=== PATIENT | male | born 1960 | race Two or more races ===

== ENCOUNTER 2020-05-22 23:15 | Inpatient (IN) | payer OTHER ==
[~2020-05-22] VITALS: Ht 180.3 cm; Wt 103.8 kg
[2020-05-22 23:35] VITALS: BP 138/68
[2020-05-23] MEDS ORDERED: methylPREDNISolone SOD SUCC 125 MG/2 ML VL IV ONE (00:45)
[2020-05-23] MEDS ORDERED: levoFLOXacin 750MG 150 ML IV ONE (00:45)
[2020-05-23 02:27] LABS: Basophils # (auto) 0 10 ^3/uL (0-0.2); Basophils % (auto) 0.1 % (0.0-2.0); Eosinophils # (auto) 0 10 ^3/uL (0-0.8); Hematocrit 39.4 % (41.0-53.0); Hemoglobin 13.5 g/dL (13.5-17.5); Lymphocytes # (auto) 0.2 10 ^3/uL (0.4-5.4); Lymphocytes % (auto) 2.7 % (10.0-50.0); Mean Corpuscular Hemoglobin 28.6 pg (28.0-32.0); Mean Corpuscular Hgb Conc. 34.3 g/dL (32.0-36.0); Mean Corpuscular Volume 83.4 fL (80.0-100.0); Monocytes # (auto) 0.5 10 ^3/uL (0-1.3); Monocytes % (auto) 5.6 % (0.0-12.0); Neutrophils # (auto) 7.7 10 ^3/uL (1.6-8.6); Neutrophils % (auto) 91.6 % (37.0-80.0); Nucleated Red Blood Cells % 0.1 %; Red Blood Cells 4.72 10^6/uL (4.5-5.90); Red Cell Distribution Width 14.3 % (11.8-14.3); White Blood Cell 8.4 10^3/uL (4.4-10.8)
[2020-05-23 02:40] LABS: Albumin 2.7 g/dL (3.4-5.0); Anion Gap 4 (5-15); Blood Urea Nitrogen 24 mg/dL (7-18); Calcium 8.4 mg/dL (8.5-10.1); Carbon Dioxide 26 mmol/L (21-32); Chloride 109 mmol/L (98-107); Glucose 174 mg/dL (74-106); Potassium 3.7 mmol/L (3.5-5.1); Sodium 139 mmol/L (136-145)
[2020-05-23 02:42] LABS: Alanine Aminotransferase 60 U/L (16-61); Aspartate Aminotransferase 37 U/L (15-37); GFR African American 99 mL/min; GFR Non-African American 82 mL/min
[2020-05-23 02:46] LABS: Alkaline Phosphatase 68 U/L (45-117); Bilirubin, Total 0.4 mg/dL (0.2-1.0); Total Protein 6.6 g/dL (6.4-8.2)
[2020-05-23 02:51] VITALS: BP 138/68
[2020-05-23] MEDS ORDERED: LORazepam 2MG/ML-1ML VIAL IV ONE (04:30)
[2020-05-23] MEDS ORDERED: MORPHINE SULFATE INJECTION 2 MG/ML SYRG IV PRN (07:15)
[2020-05-23] MEDS ORDERED: ONDANSETRON HCL 4 MG/2 ML VIAL IV PRN (07:15)
[2020-05-23] MEDS ORDERED: SODIUM CHLORIDE 0.9% 1,000 ML IV SCH (07:15)
[2020-05-23] MEDS ORDERED: DOCUSATE SOD 100 MG CAP PO PRN (07:15)
[2020-05-23] MEDS ORDERED: ALBUTEROL SULF HFA 90MCG INH 200DOSE IN PRN (07:15)
[2020-05-23] MEDS ORDERED: HYDROcodone-ACET 5/325MG TAB PO PRN (07:15)
[2020-05-23] MEDS ORDERED: ACETAMINOPHEN 500 MG TAB PO PRN (07:15)
[2020-05-23] MEDS ORDERED: NITROGLYCERIN 0.4 MG SL TAB SL PRN (07:15)
[2020-05-23 07:20] VITALS: BP 129/67
[2020-05-23 08:44] LABS: Basophils # (auto) 0 10 ^3/uL (0-0.2); Eosinophils # (auto) 0 10 ^3/uL (0-0.8); Hemoglobin 13.9 g/dL (13.5-17.5); Lymphocytes # (auto) 0.4 10 ^3/uL (0.4-5.4); Mean Corpuscular Hemoglobin 28.9 pg (28.0-32.0); Mean Corpuscular Hgb Conc. 34.7 g/dL (32.0-36.0); Mean Corpuscular Volume 83.4 fL (80.0-100.0); Monocytes # (auto) 0.3 10 ^3/uL (0-1.3); Monocytes % (auto) 3.1 % (0.0-12.0); Neutrophils # (auto) 7.7 10 ^3/uL (1.6-8.6); Neutrophils % (auto) 91.9 % (37.0-80.0); Red Blood Cells 4.79 10^6/uL (4.5-5.90); Red Cell Distribution Width 14.4 % (11.8-14.3); White Blood Cell 8.4 10^3/uL (4.4-10.8)
[2020-05-23 09:10] LABS: Albumin 2.5 g/dL (3.4-5.0); Calcium 8.9 mg/dL (8.5-10.1); Magnesium 2.4 mg/dL (1.6-2.6)
[2020-05-23 09:15] LABS: BUN/Creatinine Ratio 26.1; Bilirubin, Total 0.4 mg/dL (0.2-1.0); Total Protein 6.8 g/dL (6.4-8.2)
[2020-05-23] MEDS ORDERED: ENOXAPARIN SOD 40 MG/0.4 ML SYRINGE SC SCH (10:00)
[2020-05-23 10:14] LABS: Urine Bacteria NONE SEEN /hpf (None Seen); Urine Blood Negative /uL (Negative); Urine Mucus FEW (None Seen); Urine Specific Gravity 1.033 (1.001-1.035); Urine WBC 1 /hpf (0 - 3)
[2020-05-23] MEDS ORDERED: REMDESIVIR PER PHARMACY 0 ML IV SCH (10:45)
[2020-05-23] MEDS: ZINC SULFATE 220mg CAP or TAB PO SCH (13:03)
[2020-05-23] MEDS: CHOLECALCIFEROL (VITD3) 2,000 UNIT CAP/TAB PO SCH (13:03)
[2020-05-23] MEDS: ASCORBIC ACID 1,000 MG TAB PO SCH (13:03)
[2020-05-23] MEDS: DOXYCYCLINE 100MG/250ML 250 ML IV SCH ×2 (13:04→21:33)
[2020-05-23] MEDS: DexAMETHasone SOD PHOS 10MG/1ML VIAL INJ IV SCH (13:04)
[2020-05-23] MEDS: ENOXAPARIN SOD 40 MG/0.4 ML SYRINGE SC SCH ×2 (13:09→21:33)
[2020-05-23] MEDS: PANTOPRAZOLE 40 MG/10 ML VIAL INJ IV SCH (13:12)
[2020-05-23] MEDS: MULTIPLE VITAMIN TAB PO SCH (13:12)
[2020-05-23 14:47] LABS: CRP High Sensitivity 15.8 mg/dL (< 0.3)
[2020-05-23] MEDS: BUDESONIDE (INHALATION) 180 MCG IH IN SCH (17:26)
[2020-05-23] MEDS ORDERED: REMDESIVIR 200 MG in NS 210ml LOADING DOSE ADULT IV ONE (18:00)
[2020-05-24 01:45] VITALS: BP 141/72
[2020-05-24] MEDS ORDERED: LORazepam 2MG/ML-1ML VIAL ONE (01:46)
[2020-05-24] MEDS: LORazepam 2MG/ML-1ML VIAL IV PRN (02:03)
[2020-05-24 06:55] VITALS: BP 141/72
[2020-05-24 07:35] LABS: Basophils # (auto) 0 10 ^3/uL (0-0.2); Basophils % (auto) 0.1 % (0.0-2.0); Eosinophils # (auto) 0 10 ^3/uL (0-0.8); Eosinophils % (auto) 0.1 % (0.0-7.0); Hematocrit 42.6 % (41.0-53.0); Hemoglobin 13.8 g/dL (13.5-17.5); Lymphocytes # (auto) 0.3 10 ^3/uL (0.4-5.4); Lymphocytes % (auto) 2.3 % (10.0-50.0); Mean Corpuscular Hemoglobin 28.1 pg (28.0-32.0); Mean Corpuscular Hgb Conc. 32.5 g/dL (32.0-36.0); Mean Corpuscular Volume 86.5 fL (80.0-100.0); Monocytes # (auto) 0.4 10 ^3/uL (0-1.3); Monocytes % (auto) 3.4 % (0.0-12.0); Neutrophils # (auto) 11.3 10 ^3/uL (1.6-8.6); Neutrophils % (auto) 94.1 % (37.0-80.0); Red Blood Cells 4.92 10^6/uL (4.5-5.90); Red Cell Distribution Width 14.7 % (11.8-14.3)
[2020-05-24 07:58] LABS: Albumin 2.4 g/dL (3.4-5.0); BUN/Creatinine Ratio 37.1; Calcium 8.7 mg/dL (8.5-10.1); Potassium 3.8 mmol/L (3.5-5.1)
[2020-05-24 08:01] LABS: Bilirubin, Total 0.6 mg/dL (0.2-1.0); Total Protein 6.4 g/dL (6.4-8.2)
[2020-05-24] MEDS ORDERED: SUCCINYLCHOLINE CHLORIDE 20 MG/ML 10ML VIAL IV ONE ×2 (08:04→08:15)
[2020-05-24] MEDS ORDERED: ETOMIDATE (2MG/ML) 20ML VIAL IV ONE ×2 (08:05→08:15)
[2020-05-24] MEDS: BUDESONIDE (INHALATION) 180 MCG IH IN SCH ×2 (08:07→20:59)
[2020-05-24] MEDS: PANTOPRAZOLE 40 MG/10 ML VIAL INJ IV SCH (08:38)
[2020-05-24] MEDS: ZINC SULFATE 220mg CAP or TAB PO SCH (08:38)
[2020-05-24] MEDS: DOXYCYCLINE 100MG/250ML 250 ML IV SCH ×2 (08:38→22:12)
[2020-05-24] MEDS: DexAMETHasone SOD PHOS 10MG/1ML VIAL INJ IV SCH (08:38)
[2020-05-24] MEDS: ASCORBIC ACID 1,000 MG TAB PO SCH (08:39)
[2020-05-24] MEDS: MULTIPLE VITAMIN TAB PO SCH (08:39)
[2020-05-24] MEDS: CHOLECALCIFEROL (VITD3) 2,000 UNIT CAP/TAB PO SCH (08:39)
[2020-05-24] MEDS: ENOXAPARIN SOD 40 MG/0.4 ML SYRINGE SC SCH ×2 (08:50→22:11)
[2020-05-24] MEDS: MIDAZOLAM DRIP 50 mg/50mL 50 ML IV SCH ×3 (09:00→18:58)
[2020-05-24] MEDS: PROPOFOL 100 ML IV SCH ×3 (09:12→18:57)
[2020-05-24 09:45] VITALS: BP 115/57
[2020-05-24] MEDS ORDERED: NOREPINEPHRINE 8 MG/250ML KIT 250 ML IV SCH (09:45)
[2020-05-24] MEDS ORDERED: REMDESIVIR 100 MG in SODIUM CHL 0.9% 250 ML IV SCH (15:00)
[2020-05-24 15:20] VITALS: BP 118/60
[2020-05-24 18:16] VITALS: BP 114/54
[2020-05-24 22:11] VITALS: BP 56/54
[2020-05-25 02:19] VITALS: BP 124/57
[2020-05-25 06:36] LABS: Basophils # (auto) 0 10 ^3/uL (0-0.2); Eosinophils # (auto) 0 10 ^3/uL (0-0.8); Hematocrit 38.7 % (41.0-53.0); Hemoglobin 13.2 g/dL (13.5-17.5); Lymphocytes # (auto) 0.3 10 ^3/uL (0.4-5.4); Mean Corpuscular Hemoglobin 28.6 pg (28.0-32.0); Mean Corpuscular Hgb Conc. 34.1 g/dL (32.0-36.0); Mean Corpuscular Volume 83.9 fL (80.0-100.0); Monocytes # (auto) 0.5 10 ^3/uL (0-1.3); Monocytes % (auto) 4.7 % (0.0-12.0); Neutrophils # (auto) 8.9 10 ^3/uL (1.6-8.6); Neutrophils % (auto) 92.3 % (37.0-80.0); Nucleated Red Blood Cells % 0.1 %; Red Blood Cells 4.61 10^6/uL (4.5-5.90); Red Cell Distribution Width 14.5 % (11.8-14.3); White Blood Cell 9.7 10^3/uL (4.4-10.8)
[2020-05-25 06:48] VITALS: BP 118/57
[2020-05-25 07:44] LABS: Albumin 2.2 g/dL (3.4-5.0); BUN/Creatinine Ratio 44.7; Calcium 8.7 mg/dL (8.5-10.1); Potassium 4.2 mmol/L (3.5-5.1)
[2020-05-25 08:31] LABS: Bilirubin, Total 0.4 mg/dL (0.2-1.0); CRP High Sensitivity 9.02 mg/dL (< 0.3)
[2020-05-25] MEDS: DexAMETHasone SOD PHOS 10MG/1ML VIAL INJ IV SCH (09:39)
[2020-05-25] MEDS: MULTIPLE VITAMIN TAB PO SCH (09:40)
[2020-05-25] MEDS: ZINC SULFATE 220mg CAP or TAB PO SCH (09:40)
[2020-05-25] MEDS: DOXYCYCLINE 100MG/250ML 250 ML IV SCH ×2 (09:40→20:13)
[2020-05-25] MEDS: ASCORBIC ACID 1,000 MG TAB PO SCH (09:41)
[2020-05-25] MEDS: ENOXAPARIN SOD 40 MG/0.4 ML SYRINGE SC SCH ×2 (09:41→20:13)
[2020-05-25] MEDS: PANTOPRAZOLE 40 MG/10 ML VIAL INJ IV SCH (09:45)
[2020-05-25] MEDS: MIDAZOLAM DRIP 50 mg/50mL 50 ML IV SCH ×3 (09:55→18:29)
[2020-05-25] MEDS: PROPOFOL 100 ML IV SCH ×2 (09:56→17:48)
[2020-05-25] MEDS: CHOLECALCIFEROL (VITD3) 2,000 UNIT CAP/TAB PO SCH (11:28)
[2020-05-25] MEDS: fentaNYL Drip 2500mCg/250mlNS 250 ML IV SCH (14:53)
[2020-05-25 15:07] VITALS: BP 152/69
[2020-05-25] MEDS ORDERED: LABETALOL HCL 5 MG/ML ML 20ML VIAL IV ONE (16:49)
[2020-05-25] MEDS ORDERED: PROPOFOL 100 ML IV ONE (17:00)
[2020-05-25 19:09] VITALS: BP 125/59
[2020-05-25 22:33] VITALS: BP 127/62
[2020-05-26 02:30] VITALS: BP 113/59
[2020-05-26] MEDS: PROPOFOL 100 ML IV SCH ×3 (02:40→19:03)
[2020-05-26] MEDS: MIDAZOLAM DRIP 50 mg/50mL 50 ML IV SCH ×4 (03:07→17:45)
[2020-05-26] MEDS: DOPamine 1600MCG/ML D5W 250 ML IV SCH ×2 (04:27→17:42)
[2020-05-26 07:22] VITALS: BP 167/63
[2020-05-26 07:33] LABS: Potassium 4.1 mmol/L (3.5-5.1)
[2020-05-26 08:00] LABS: Albumin 2.2 g/dL (3.4-5.0); BUN/Creatinine Ratio 43.6; Bilirubin, Total 0.7 mg/dL (0.2-1.0); Calcium 8.5 mg/dL (8.5-10.1); Total Protein 6.6 g/dL (6.4-8.2)
[2020-05-26] MEDS: ASCORBIC ACID 1,000 MG TAB PO SCH (10:00)
[2020-05-26] MEDS: CHOLECALCIFEROL (VITD3) 2,000 UNIT CAP/TAB PO SCH (10:00)
[2020-05-26] MEDS: MULTIPLE VITAMIN TAB PO SCH (10:00)
[2020-05-26] MEDS: DexAMETHasone SOD PHOS 10MG/1ML VIAL INJ IV SCH (10:00)
[2020-05-26] MEDS: DOXYCYCLINE 100MG/250ML 250 ML IV SCH ×2 (10:00→22:00)
[2020-05-26] MEDS: FAMOTIDINE (10MG/ML) 2ML VL IV SCH ×2 (10:00→22:00)
[2020-05-26] MEDS: ZINC SULFATE 220mg CAP or TAB PO SCH (10:00)
[2020-05-26] MEDS: ENOXAPARIN SOD 40 MG/0.4 ML SYRINGE SC SCH ×2 (10:00→22:00)
[2020-05-26 11:33] VITALS: BP 112/50
[2020-05-26] MEDS: fentaNYL Drip 2500mCg/250mlNS 250 ML IV SCH (11:55)
[2020-05-26] MEDS ORDERED: FUROSEMIDE 40 MG/4 ML VIAL IV ONE (13:30)
[2020-05-26 14:38] VITALS: BP 131/58
[2020-05-26 18:47] VITALS: BP 108/56
[2020-05-26 21:39] VITALS: BP 107/58
[2020-05-27 01:35] VITALS: BP 103/53
[2020-05-27] MEDS: PROPOFOL 100 ML IV SCH ×3 (03:00→16:13)
[2020-05-27] MEDS: DOPamine 1600MCG/ML D5W 250 ML IV SCH ×2 (05:39→16:24)
[2020-05-27 06:50] VITALS: BP 100/68
[2020-05-27 07:27] LABS: Hematocrit 43.2 % (41.0-53.0); Hemoglobin 14.8 g/dL (13.5-17.5); Mean Corpuscular Hemoglobin 28.8 pg (28.0-32.0); Mean Corpuscular Hgb Conc. 34.4 g/dL (32.0-36.0); Mean Corpuscular Volume 83.8 fL (80.0-100.0); Red Blood Cells 5.15 10^6/uL (4.5-5.90); Red Cell Distribution Width 14.6 % (11.8-14.3); White Blood Cell 10.1 10^3/uL (4.4-10.8)
[2020-05-27 07:29] LABS: Basophils % (manual) 0 (0.0-2.0); Blast Cells 0; Eosinophils % (manual) 0 (0-7); Promyelocytes % 0; Reactive Lymphocytes 0
[2020-05-27 07:45] LABS: Potassium 4.2 mmol/L (3.5-5.1)
[2020-05-27 08:12] LABS: BUN/Creatinine Ratio 46.6; Bilirubin, Total 0.6 mg/dL (0.2-1.0); CRP High Sensitivity 6.94 mg/dL (< 0.3); Calcium 8.6 mg/dL (8.5-10.1); Total Protein 6.2 g/dL (6.4-8.2)
[2020-05-27 08:13] LABS: Band Neutrophils % (manual) 2; Lymphocytes % (manual) 9 (10.0-50.0); Metamyelocytes % 2; Monocytes % (manual) 4 (0-12); Myelocytes % 3
[2020-05-27] MEDS: FUROSEMIDE 20 MG/2 ML VIAL IV SCH (08:24)
[2020-05-27] MEDS: DexAMETHasone SOD PHOS 10MG/1ML VIAL INJ IV SCH (08:24)
[2020-05-27] MEDS: FAMOTIDINE (10MG/ML) 2ML VL IV SCH ×2 (08:24→21:43)
[2020-05-27] MEDS: ASCORBIC ACID 1,000 MG TAB PO SCH (08:25)
[2020-05-27] MEDS: MULTIPLE VITAMIN TAB PO SCH (08:25)
[2020-05-27] MEDS: ZINC SULFATE 220mg CAP or TAB PO SCH (08:25)
[2020-05-27] MEDS: CHOLECALCIFEROL (VITD3) 2,000 UNIT CAP/TAB PO SCH (08:25)
[2020-05-27] MEDS: ENOXAPARIN SOD 40 MG/0.4 ML SYRINGE SC SCH ×2 (08:25→21:43)
[2020-05-27] MEDS: MIDAZOLAM DRIP 50 mg/50mL 50 ML IV SCH ×3 (08:40→16:25)
[2020-05-27] MEDS: DOXYCYCLINE 100MG/250ML 250 ML IV SCH ×2 (08:41→22:56)
[2020-05-27 10:40] VITALS: BP 105/67
[2020-05-27] MEDS ORDERED: ACETAMINOPHEN 650 mg PER 20.3 mL UD PO PRN (11:15)
[2020-05-27] MEDS: fentaNYL Drip 2500mCg/250mlNS 250 ML IV SCH ×3 (12:25→23:58)
[2020-05-27] MEDS: REMDESIVIR 100 MG in SODIUM CHL 0.9% 250 ML IV SCH (16:11)
[2020-05-27] MEDS ORDERED: methylPREDNISolone SOD SUCC 40 MG/ML VL IV ONE ×2 (16:30→20:00)
[2020-05-27] MEDS ORDERED: ACETAMINOPHEN 650 mg PER 20.3 mL UD PO ONE ×2 (16:30→20:00)
[2020-05-27] MEDS ORDERED: diphenhdrAMINE HCL 50 MG/1 ML VL IV ONE ×2 (16:30→20:00)
[2020-05-27] MEDS ORDERED: TOCILIZUMAB 400 MG in SODIUM CHL 0.9% 80 ML IV ONE ×2 (17:00→20:30)
[2020-05-27 18:29] VITALS: BP 143/64
[2020-05-27 22:23] VITALS: BP 167/63
[2020-05-28 02:26] VITALS: BP 151/66
[2020-05-28] MEDS ORDERED: LORazepam 2MG/ML-1ML VIAL IV ONE (02:45)
[2020-05-28 06:37] VITALS: BP 157/69
[2020-05-28] MEDS: PROPOFOL 100 ML IV SCH ×4 (07:01→19:30)
[2020-05-28] MEDS: DOPamine 1600MCG/ML D5W 250 ML IV SCH ×2 (07:02→18:28)
[2020-05-28 07:06] LABS: Potassium 4.3 mmol/L (3.5-5.1)
[2020-05-28 07:16] LABS: BUN/Creatinine Ratio 48.6; Bilirubin, Total 0.7 mg/dL (0.2-1.0); Calcium 8.3 mg/dL (8.5-10.1); Total Protein 6.3 g/dL (6.4-8.2)
[2020-05-28] MEDS: ZINC SULFATE 220mg CAP or TAB PO SCH (08:50)
[2020-05-28] MEDS: MULTIPLE VITAMIN TAB PO SCH (08:51)
[2020-05-28] MEDS: ASCORBIC ACID 1,000 MG TAB PO SCH (08:51)
[2020-05-28] MEDS: ENOXAPARIN SOD 40 MG/0.4 ML SYRINGE SC SCH ×2 (08:52→23:07)
[2020-05-28] MEDS: CHOLECALCIFEROL (VITD3) 2,000 UNIT CAP/TAB PO SCH (08:52)
[2020-05-28] MEDS: FAMOTIDINE (10MG/ML) 2ML VL IV SCH ×2 (08:53→23:06)
[2020-05-28] MEDS: FUROSEMIDE 20 MG/2 ML VIAL IV SCH (08:53)
[2020-05-28] MEDS: DexAMETHasone SOD PHOS 10MG/1ML VIAL INJ IV SCH (08:54)
[2020-05-28] MEDS: MIDAZOLAM DRIP 50 mg/50mL 50 ML IV SCH ×3 (09:00→15:59)
[2020-05-28 09:48] LABS: Hepatitis B Surface Antibody Negative
[2020-05-28] MEDS ORDERED: ACETAMINOPHEN 650 mg PER 20.3 mL UD PO ONE (10:00)
[2020-05-28] MEDS ORDERED: diphenhdrAMINE HCL 50 MG/1 ML VL IV ONE (10:00)
[2020-05-28 10:20] LABS: Hepatitis A Total Antibody Positive
[2020-05-28] MEDS ORDERED: TOCILIZUMAB 400 MG in SODIUM CHL 0.9% 80 ML IV ONE (10:30)
[2020-05-28 12:06] LABS: Hepatitis A Ab IgM Negative
[2020-05-28 12:07] LABS: Hepatitis B Core IgM Negative; Hepatitis B Core Total AB Negative; Hepatitis B Surface Antigen Negative (Negative)
[2020-05-28 12:08] LABS: Hepatitis C Antibody Negative (Negative)
[2020-05-28] MEDS: fentaNYL Drip 2500mCg/250mlNS 250 ML IV SCH (12:48)
[2020-05-28] MEDS ORDERED: PIPERACILLIN-TAZOB 3.375GM 100 ML IV ONE (13:00)
[2020-05-28 14:04] VITALS: BP 131/66
[2020-05-28] MEDS: REMDESIVIR 100 MG in SODIUM CHL 0.9% 250 ML IV SCH (15:14)
[2020-05-28] MEDS: PIPERACILLIN-TAZOB 3.375GM 100 ML IV SCH (18:28)
[2020-05-28 18:50] VITALS: BP 141/61
[2020-05-28] MEDS: ERGOCALCIFEROL 50,000 UNIT(1.25MG) CAP PO SCH (20:30)
[2020-05-28 22:50] VITALS: BP 155/69
[2020-05-29] VITALS (53 sets, daily range): BP systolic 100–151; BP diastolic 58–80
[2020-05-29] MEDS: PIPERACILLIN-TAZOB 3.375GM 100 ML IV SCH ×3 (03:39→19:00)
[2020-05-29] MEDS: PROPOFOL 100 ML IV SCH ×2 (04:47→13:02)
[2020-05-29 08:03] LABS: Hemoglobin 14.9 g/dL (13.5-17.5); Mean Corpuscular Hemoglobin 28.4 pg (28.0-32.0); Mean Corpuscular Hgb Conc. 33.8 g/dL (32.0-36.0); Mean Corpuscular Volume 83.9 fL (80.0-100.0); Red Blood Cells 5.24 10^6/uL (4.5-5.90); Red Cell Distribution Width 14.4 % (11.8-14.3); White Blood Cell 7.1 10^3/uL (4.4-10.8)
[2020-05-29 08:05] LABS: Basophils % (manual) 0 (0.0-2.0); Blast Cells 0; Metamyelocytes % 0; Myelocytes % 0; Promyelocytes % 0; Reactive Lymphocytes 0
[2020-05-29] MEDS: ZINC SULFATE 220mg CAP or TAB PO SCH (08:09)
[2020-05-29] MEDS: MULTIPLE VITAMIN TAB PO SCH (08:09)
[2020-05-29] MEDS: DexAMETHasone SOD PHOS 10MG/1ML VIAL INJ IV SCH (08:09)
[2020-05-29] MEDS: FUROSEMIDE 20 MG/2 ML VIAL IV SCH (08:09)
[2020-05-29] MEDS: FAMOTIDINE (10MG/ML) 2ML VL IV SCH ×2 (08:09→22:00)
[2020-05-29] MEDS: ENOXAPARIN SOD 40 MG/0.4 ML SYRINGE SC SCH ×2 (08:09→22:00)
[2020-05-29] MEDS: CHOLECALCIFEROL (VITD3) 2,000 UNIT CAP/TAB PO SCH (08:09)
[2020-05-29] MEDS: ASCORBIC ACID 1,000 MG TAB PO SCH (08:09)
[2020-05-29] MEDS: DOPamine 1600MCG/ML D5W 250 ML IV SCH ×2 (08:10→22:30)
[2020-05-29 08:14] LABS: Potassium 4.2 mmol/L (3.5-5.1)
[2020-05-29 08:26] LABS: BUN/Creatinine Ratio 45.3; Bilirubin, Total 0.5 mg/dL (0.2-1.0); Calcium 8.3 mg/dL (8.5-10.1); Total Protein 6.2 g/dL (6.4-8.2)
[2020-05-29] MEDS: fentaNYL Drip 2500mCg/250mlNS 250 ML IV SCH (10:20)
[2020-05-29 11:40] LABS: Band Neutrophils % (manual) 2; Eosinophils % (manual) 2 (0-7); Lymphocytes % (manual) 13 (10.0-50.0); Monocytes % (manual) 6 (0-12)
[2020-05-29] MEDS: REMDESIVIR 100 MG in SODIUM CHL 0.9% 250 ML IV SCH (17:58)
[2020-05-29] MEDS: MIDAZOLAM DRIP 50 mg/50mL 50 ML IV SCH (20:30)
[2020-05-30] VITALS (81 sets, daily range): BP systolic 89–140; BP diastolic 52–75
[2020-05-30] MEDS: PIPERACILLIN-TAZOB 3.375GM 100 ML IV SCH ×3 (03:00→18:45)
[2020-05-30] MEDS: PROPOFOL 100 ML IV SCH ×3 (03:00→15:57)
[2020-05-30] MEDS: MIDAZOLAM DRIP 50 mg/50mL 50 ML IV SCH ×4 (04:27→21:01)
[2020-05-30 06:10] LABS: Basophils # (auto) 0 10 ^3/uL (0-0.2); Basophils % (auto) 0.3 % (0.0-2.0); Eosinophils # (auto) 0.1 10 ^3/uL (0-0.8); Eosinophils % (auto) 2.1 % (0.0-7.0); Hematocrit 43.9 % (41.0-53.0); Hemoglobin 15.1 g/dL (13.5-17.5); Lymphocytes # (auto) 0.7 10 ^3/uL (0.4-5.4); Mean Corpuscular Hemoglobin 29.1 pg (28.0-32.0); Mean Corpuscular Hgb Conc. 34.4 g/dL (32.0-36.0); Mean Corpuscular Volume 84.5 fL (80.0-100.0); Monocytes # (auto) 0.3 10 ^3/uL (0-1.3); Monocytes % (auto) 5.1 % (0.0-12.0); Neutrophils % (auto) 81.5 % (37.0-80.0); Nucleated Red Blood Cells % 0.4 %; Red Cell Distribution Width 14.5 % (11.8-14.3); White Blood Cell 6.1 10^3/uL (4.4-10.8)
[2020-05-30 06:38] LABS: Potassium 4.2 mmol/L (3.5-5.1)
[2020-05-30 06:49] LABS: Albumin 2.1 g/dL (3.4-5.0); BUN/Creatinine Ratio 43.8; Bilirubin, Total 0.7 mg/dL (0.2-1.0); Calcium 8.1 mg/dL (8.5-10.1); Total Protein 6.2 g/dL (6.4-8.2)
[2020-05-30] MEDS: fentaNYL Drip 2500mCg/250mlNS 250 ML IV SCH ×2 (09:15→21:03)
[2020-05-30] MEDS: FAMOTIDINE (10MG/ML) 2ML VL IV SCH ×2 (10:32→21:00)
[2020-05-30] MEDS: ENOXAPARIN SOD 40 MG/0.4 ML SYRINGE SC SCH ×2 (10:32→21:01)
[2020-05-30] MEDS: ASCORBIC ACID 1,000 MG TAB PO SCH (10:33)
[2020-05-30] MEDS: DexAMETHasone SOD PHOS 10MG/1ML VIAL INJ IV SCH (10:33)
[2020-05-30] MEDS: MULTIPLE VITAMIN TAB PO SCH (10:33)
[2020-05-30] MEDS: FUROSEMIDE 20 MG/2 ML VIAL IV SCH (10:33)
[2020-05-30] MEDS: CHOLECALCIFEROL (VITD3) 2,000 UNIT CAP/TAB PO SCH (10:34)
[2020-05-30] MEDS: ZINC SULFATE 220mg CAP or TAB PO SCH (10:34)
[2020-05-30] MEDS: DOPamine 1600MCG/ML D5W 250 ML IV SCH (12:06)
[2020-05-30] MEDS: REMDESIVIR 100 MG in SODIUM CHL 0.9% 250 ML IV SCH (15:10)
[2020-05-31] VITALS (98 sets, daily range): BP systolic 85–192; BP diastolic 47–92
[2020-05-31] MEDS: MIDAZOLAM DRIP 50 mg/50mL 50 ML IV SCH ×4 (03:00→23:00)
[2020-05-31] MEDS: DOPamine 1600MCG/ML D5W 250 ML IV SCH ×2 (03:56→16:24)
[2020-05-31] MEDS: PIPERACILLIN-TAZOB 3.375GM 100 ML IV SCH ×3 (03:56→18:45)
[2020-05-31] MEDS: fentaNYL Drip 2500mCg/250mlNS 250 ML IV SCH ×2 (09:02→21:53)
[2020-05-31] MEDS: DexAMETHasone SOD PHOS 10MG/1ML VIAL INJ IV SCH (10:29)
[2020-05-31] MEDS: FAMOTIDINE (10MG/ML) 2ML VL IV SCH ×2 (10:29→21:50)
[2020-05-31] MEDS: ENOXAPARIN SOD 40 MG/0.4 ML SYRINGE SC SCH ×2 (10:29→21:50)
[2020-05-31] MEDS: FUROSEMIDE 20 MG/2 ML VIAL IV SCH (10:30)
[2020-05-31] MEDS: ZINC SULFATE 220mg CAP or TAB PO SCH (10:30)
[2020-05-31] MEDS: ASCORBIC ACID 1,000 MG TAB PO SCH (10:30)
[2020-05-31] MEDS: MULTIPLE VITAMIN TAB PO SCH (10:30)
[2020-05-31] MEDS: CHOLECALCIFEROL (VITD3) 2,000 UNIT CAP/TAB PO SCH (10:30)
[2020-05-31 12:55] LABS: Alanine Aminotransferase 138 U/L (16-61)
[2020-05-31] MEDS: PROPOFOL 100 ML IV SCH ×2 (15:14→23:36)
[2020-05-31 18:14] LABS: Alkaline Phosphatase 85 U/L (45-117); Anion Gap 6 (5-15); Aspartate Aminotransferase 42 U/L (15-37); BUN/Creatinine Ratio 49.4; Bilirubin, Total 0.7 mg/dL (0.2-1.0); Blood Urea Nitrogen 38 mg/dL (7-18); Calcium 8.3 mg/dL (8.5-10.1); Carbon Dioxide 25 mmol/L (21-32); Chloride 112 mmol/L (98-107); GFR African American 133 mL/min; GFR Non-African American 110 mL/min; Glucose 104 mg/dL (74-106); Potassium 3.8 mmol/L (3.5-5.1); Sodium 143 mmol/L (136-145)
[2020-05-31 18:15] LABS: Albumin 2.3 g/dL (3.4-5.0)
[2020-06-01] VITALS (85 sets, daily range): BP systolic 83–151; BP diastolic 45–84
[2020-06-01] MEDS: MIDAZOLAM DRIP 50 mg/50mL 50 ML IV SCH ×3 (03:00→22:00)
[2020-06-01 04:08] LABS: Basophils # (auto) 0 10 ^3/uL (0-0.2); Basophils % (auto) 0.4 % (0.0-2.0); Eosinophils # (auto) 0.1 10 ^3/uL (0-0.8); Hematocrit 42.6 % (41.0-53.0); Hemoglobin 14.6 g/dL (13.5-17.5); Lymphocytes # (auto) 0.8 10 ^3/uL (0.4-5.4); Lymphocytes % (auto) 17.6 % (10.0-50.0); Mean Corpuscular Hemoglobin 28.8 pg (28.0-32.0); Mean Corpuscular Hgb Conc. 34.2 g/dL (32.0-36.0); Mean Corpuscular Volume 84.2 fL (80.0-100.0); Monocytes # (auto) 0.3 10 ^3/uL (0-1.3); Monocytes % (auto) 5.3 % (0.0-12.0); Neutrophils # (auto) 3.6 10 ^3/uL (1.6-8.6); Neutrophils % (auto) 75.7 % (37.0-80.0); Nucleated Red Blood Cells % 0.1 %; Red Blood Cells 5.06 10^6/uL (4.5-5.90); Red Cell Distribution Width 14.7 % (11.8-14.3); White Blood Cell 4.8 10^3/uL (4.4-10.8)
[2020-06-01] MEDS: PIPERACILLIN-TAZOB 3.375GM 100 ML IV SCH ×3 (04:13→19:02)
[2020-06-01 04:23] LABS: INR 1.19 (0.9-1.15); Partial Thromboplastin Time 26.7 sec (23.0-31.2)
[2020-06-01 04:26] LABS: Albumin 2.4 g/dL (3.4-5.0); Magnesium 2.5 mg/dL (1.6-2.6); Potassium 3.7 mmol/L (3.5-5.1)
[2020-06-01 04:29] LABS: Bilirubin, Total 0.9 mg/dL (0.2-1.0); Phosphorus 3.5 mg/dL (2.5-4.90); Total Protein 5.7 g/dL (6.4-8.2)
[2020-06-01] MEDS: DOPamine 1600MCG/ML D5W 250 ML IV SCH ×2 (07:17→20:39)
[2020-06-01] MEDS: PROPOFOL 100 ML IV SCH ×2 (07:58→16:20)
[2020-06-01] MEDS: DexAMETHasone SOD PHOS 10MG/1ML VIAL INJ IV SCH (10:20)
[2020-06-01] MEDS: ZINC SULFATE 220mg CAP or TAB PO SCH (10:20)
[2020-06-01] MEDS: FAMOTIDINE (10MG/ML) 2ML VL IV SCH ×2 (10:20→22:03)
[2020-06-01] MEDS: ASCORBIC ACID 1,000 MG TAB PO SCH (10:21)
[2020-06-01] MEDS: MULTIPLE VITAMIN TAB PO SCH (10:21)
[2020-06-01] MEDS: CHOLECALCIFEROL (VITD3) 2,000 UNIT CAP/TAB PO SCH (10:21)
[2020-06-01] MEDS: ENOXAPARIN SOD 40 MG/0.4 ML SYRINGE SC SCH ×2 (10:21→22:03)
[2020-06-01] MEDS: FUROSEMIDE 40 MG/4 ML VIAL IV SCH (14:20)
[2020-06-01] MEDS: fentaNYL Drip 2500mCg/250mlNS 250 ML IV SCH (19:03)
[2020-06-02] VITALS (48 sets, daily range): BP systolic 93–182; BP diastolic 50–96
[2020-06-02] MEDS: PROPOFOL 100 ML IV SCH ×3 (00:42→17:26)
[2020-06-02] MEDS: PIPERACILLIN-TAZOB 3.375GM 100 ML IV SCH ×3 (03:05→19:00)
[2020-06-02] MEDS: MIDAZOLAM DRIP 50 mg/50mL 50 ML IV SCH (03:08)
[2020-06-02] MEDS: FUROSEMIDE 40 MG/4 ML VIAL IV SCH (09:00)
[2020-06-02] MEDS: ASCORBIC ACID 1,000 MG TAB PO SCH (09:15)
[2020-06-02] MEDS: ZINC SULFATE 220mg CAP or TAB PO SCH (09:15)
[2020-06-02] MEDS: DexAMETHasone SOD PHOS 10MG/1ML VIAL INJ IV SCH (09:15)
[2020-06-02] MEDS: ENOXAPARIN SOD 40 MG/0.4 ML SYRINGE SC SCH ×2 (09:15→22:04)
[2020-06-02] MEDS: FAMOTIDINE (10MG/ML) 2ML VL IV SCH ×2 (09:15→22:04)
[2020-06-02] MEDS: CHOLECALCIFEROL (VITD3) 2,000 UNIT CAP/TAB PO SCH (09:15)
[2020-06-02] MEDS: MULTIPLE VITAMIN TAB PO SCH (09:15)
[2020-06-02] MEDS: DOPamine 1600MCG/ML D5W 250 ML IV SCH ×2 (10:01→23:23)
[2020-06-03] VITALS (22 sets, daily range): BP systolic 121–185; BP diastolic 68–95
[2020-06-03] MEDS: LORazepam 2MG/ML-1ML VIAL IV PRN ×2 (00:47→22:58)
[2020-06-03] MEDS: PROPOFOL 100 ML IV SCH ×2 (01:48→10:10)
[2020-06-03] MEDS: PIPERACILLIN-TAZOB 3.375GM 100 ML IV SCH ×3 (03:15→18:42)
[2020-06-03] MEDS: MIDAZOLAM DRIP 50 mg/50mL 50 ML IV SCH (08:15)
[2020-06-03] MEDS: ASCORBIC ACID 1,000 MG TAB PO SCH (10:00)
[2020-06-03] MEDS: ZINC SULFATE 220mg CAP or TAB PO SCH (10:00)
[2020-06-03] MEDS: ENOXAPARIN SOD 40 MG/0.4 ML SYRINGE SC SCH ×2 (10:00→21:05)
[2020-06-03] MEDS: DexAMETHasone SOD PHOS 10MG/1ML VIAL INJ IV SCH (10:00)
[2020-06-03] MEDS: MULTIPLE VITAMIN TAB PO SCH (10:00)
[2020-06-03] MEDS: CHOLECALCIFEROL (VITD3) 2,000 UNIT CAP/TAB PO SCH (10:00)
[2020-06-03] MEDS: FUROSEMIDE 40 MG/4 ML VIAL IV SCH (10:00)
[2020-06-03] MEDS: FAMOTIDINE (10MG/ML) 2ML VL IV SCH ×2 (10:00→21:05)
[2020-06-03] MEDS: fentaNYL Drip 2500mCg/250mlNS 250 ML IV SCH (12:45)
[2020-06-03] MEDS: DOPamine 1600MCG/ML D5W 250 ML IV SCH (12:45)
[2020-06-03] MEDS ORDERED: hydrALAZINE HCL 20 MG/ML VL IV PRN (13:00)
[2020-06-04] MEDS: PIPERACILLIN-TAZOB 3.375GM 100 ML IV SCH ×3 (02:37→17:44)
[2020-06-04 06:13] LABS: BUN/Creatinine Ratio 28.6; Calcium 8.3 mg/dL (8.5-10.1)
[2020-06-04 06:47] LABS: Potassium 2.7 mmol/L (3.5-5.1)
[2020-06-04 07:44] LABS: Basophils # (auto) 0 10 ^3/uL (0-0.2); Basophils % (auto) 0.6 % (0.0-2.0); Eosinophils # (auto) 0.1 10 ^3/uL (0-0.8); Hematocrit 46.2 % (41.0-53.0); Hemoglobin 15.7 g/dL (13.5-17.5); Lymphocytes # (auto) 0.7 10 ^3/uL (0.4-5.4); Lymphocytes % (auto) 9.3 % (10.0-50.0); Mean Corpuscular Hemoglobin 28.1 pg (28.0-32.0); Mean Corpuscular Hgb Conc. 34.1 g/dL (32.0-36.0); Mean Corpuscular Volume 82.5 fL (80.0-100.0); Monocytes # (auto) 0.5 10 ^3/uL (0-1.3); Monocytes % (auto) 7.1 % (0.0-12.0); Neutrophils # (auto) 5.9 10 ^3/uL (1.6-8.6); Nucleated Red Blood Cells % 0.2 %; Red Blood Cells 5.59 10^6/uL (4.5-5.90); Red Cell Distribution Width 14.3 % (11.8-14.3); White Blood Cell 7.1 10^3/uL (4.4-10.8)
[2020-06-04 08:00] VITALS: BP 116/69
[2020-06-04] MEDS ORDERED: POTASSIUM CHL 20 Meq TABLET PO ONE (10:00)
[2020-06-04] MEDS: ENOXAPARIN SOD 40 MG/0.4 ML SYRINGE SC SCH ×2 (11:04→21:21)
[2020-06-04] MEDS: MULTIPLE VITAMIN TAB PO SCH (11:06)
[2020-06-04] MEDS: CHOLECALCIFEROL (VITD3) 2,000 UNIT CAP/TAB PO SCH (11:06)
[2020-06-04] MEDS: ZINC SULFATE 220mg CAP or TAB PO SCH (11:06)
[2020-06-04] MEDS: ASCORBIC ACID 1,000 MG TAB PO SCH (11:07)
[2020-06-04] MEDS: DexAMETHasone SOD PHOS 10MG/1ML VIAL INJ IV SCH (11:07)
[2020-06-04] MEDS: FUROSEMIDE 40 MG/4 ML VIAL IV SCH (11:08)
[2020-06-04] MEDS: FAMOTIDINE (10MG/ML) 2ML VL IV SCH ×2 (11:08→21:21)
[2020-06-04 16:00] VITALS: BP 115/57
[2020-06-04] MEDS: ERGOCALCIFEROL 50,000 UNIT(1.25MG) CAP PO SCH (20:37)
[2020-06-05] MEDS: PIPERACILLIN-TAZOB 3.375GM 100 ML IV SCH ×2 (02:37→10:56)
[2020-06-05 07:33] LABS: Potassium 3.2 mmol/L (3.5-5.1)
[2020-06-05 07:40] LABS: BUN/Creatinine Ratio 24.5; Calcium 8.5 mg/dL (8.5-10.1); Magnesium 2.5 mg/dL (1.6-2.6)
[2020-06-05 08:00] VITALS: BP 122/69
[2020-06-05] MEDS ORDERED: POTASSIUM CHL 20 Meq TABLET PO ONE (09:00)
[2020-06-05] MEDS: FUROSEMIDE 40 MG/4 ML VIAL IV SCH (10:56)
[2020-06-05] MEDS: ENOXAPARIN SOD 40 MG/0.4 ML SYRINGE SC SCH (10:56)
[2020-06-05] MEDS: DexAMETHasone SOD PHOS 10MG/1ML VIAL INJ IV SCH (10:57)
[2020-06-05] MEDS: MULTIPLE VITAMIN TAB PO SCH (10:57)
[2020-06-05] MEDS: ASCORBIC ACID 1,000 MG TAB PO SCH (10:57)
[2020-06-05] MEDS: ZINC SULFATE 220mg CAP or TAB PO SCH (10:57)
[2020-06-05] MEDS: CHOLECALCIFEROL (VITD3) 2,000 UNIT CAP/TAB PO SCH (10:58)
[2020-06-05] MEDS: FAMOTIDINE (10MG/ML) 2ML VL IV SCH (11:04)
[2020-06-05] MEDS ORDERED: ALUM & MAG HYDROX-SIMETH LIQ(MAALOX) 30 ML PO ONE (13:45)
[2020-06-05 16:00] VITALS: BP 119/63
[2020-06-05 17:06] VITALS: BP 122/69
== END 2020-06-05 18:00 | DRG 870 ==
LOC: EDBD 23:15 → ER 23:15 → TELE 05-23 07:16 → ICU WEST 05-29 10:27 → TELE-WESTW 06-03 21:44
PROVIDERS: ADMIT Nurse Practitioner Family; ATTEND Internal Medicine
PROC: 5A09357 Assistance with Respiratory Ventilation, Less than 24 Consecutive Hours, Continuous Positive Airway Pressure (ICD-10-PCS; 2020-05-22)
PROC: XW033E5 Introduction of Remdesivir Anti-infective into Peripheral Vein, Percutaneous Approach, New Technology Group 5 (ICD-10-PCS; principal; 2020-05-23)
PROC: 5A1955Z Respiratory Ventilation, Greater than 96 Consecutive Hours (ICD-10-PCS; 2020-05-24)
PROC: 0BH17EZ Insertion of Endotracheal Airway into Trachea, Via Natural or Artificial Opening (ICD-10-PCS; 2020-05-24)
PROC: 5A09357 Assistance with Respiratory Ventilation, Less than 24 Consecutive Hours, Continuous Positive Airway Pressure (ICD-10-PCS; 2020-05-24)
PROC: 06HM33Z Insertion of Infusion Device into Right Femoral Vein, Percutaneous Approach (ICD-10-PCS; 2020-05-24)
PROC: XW033H5 Introduction of Tocilizumab into Peripheral Vein, Percutaneous Approach, New Technology Group 5 (ICD-10-PCS; 2020-05-27)
DX: A41.89 Other specified sepsis (principal); R65.21 Severe sepsis with septic shock; J96.01 Acute respiratory failure with hypoxia; U07.1 COVID-19; J12.82 Pneumonia due to coronavirus disease 2019; J45.901 Unspecified asthma with (acute) exacerbation; J44.0 Chronic obstructive pulmonary disease with (acute) lower respiratory infection; J44.1 Chronic obstructive pulmonary disease with (acute) exacerbation; D89.834 Cytokine release syndrome, grade 4; E86.0 Dehydration; E66.01 Morbid (severe) obesity due to excess calories; I10 Essential (primary) hypertension; R73.9 Hyperglycemia, unspecified; Z85.038 Personal history of other malignant neoplasm of large intestine; Z68.30 Body mass index [BMI] 30.0-30.9, adult
CPT/HCPCS: 36415; 36600; 71045; 76705; 80048; 80053; 80074; 81001; 82306; 82728; 82805; 82962; 83036; 83605; 83615; 83735; 83880; 84100; 84443; 84484; 85007; 85025; 85027; 85379; 85610; 85730; 86141; 86704; 86706; 86708; 86803; 87040; 87070; 87081; 87205; 87340; 87426; 92610; 94002; 94003; 94640; 94660; 96361; 96365; 96375; G0378; J0330; J1100; J1956; J2250; J2543; J2704; J3490; J7060

== ENCOUNTER 2022-01-03 04:26 | Emergency (ER) | payer OTHER, MEDICAID ==
[~2022-01-03] VITALS: Ht 175.3 cm; Wt 117.0 kg
[2022-01-03 04:35] VITALS: BP 163/85
[2022-01-03 06:17] LABS: Basophils # (auto) 0 10 ^3/uL (0-0.2); Basophils % (auto) 0.2 % (0.0-2.0); Eosinophils # (auto) 0 10 ^3/uL (0-0.8); Eosinophils % (auto) 0.4 % (0.0-7.0); Hematocrit 47.1 % (41.0-53.0); Hemoglobin 15.7 g/dL (13.5-17.5); Lymphocytes # (auto) 0.8 10 ^3/uL (0.4-5.4); Lymphocytes % (auto) 6.7 % (10.0-50.0); Mean Corpuscular Hemoglobin 27.3 pg (28.0-32.0); Mean Corpuscular Hgb Conc. 33.3 g/dL (32.0-36.0); Mean Corpuscular Volume 82.2 fL (80.0-100.0); Monocytes # (auto) 0.9 10 ^3/uL (0-1.3); Monocytes % (auto) 7.6 % (0.0-12.0); Neutrophils # (auto) 10.1 10 ^3/uL (1.6-8.6); Neutrophils % (auto) 85.1 % (37.0-80.0); Nucleated Red Blood Cells % 0.1 %; Red Blood Cells 5.74 10^6/uL (4.5-5.90); Red Cell Distribution Width 14.2 % (11.8-14.3); White Blood Cell 11.9 10^3/uL (4.4-10.8)
[2022-01-03 06:35] LABS: Albumin 3.9 g/dL (3.4-5.0); Calcium 8.7 mg/dL (8.5-10.1); Potassium 3.4 mmol/L (3.5-5.1)
[2022-01-03 06:38] LABS: Bilirubin, Total 0.6 mg/dL (0.2-1.0); Total Protein 7.1 g/dL (6.4-8.2)
[2022-01-03] MEDS ORDERED: ASPirin 81 mg TAB PO ONE (06:45)
[2022-01-03] MEDS ORDERED: IOHEXOL 350 MG/ML 100ML IJ ONE (08:37)
[2022-01-03] MEDS ORDERED: POTASSIUM EFFERVESENT TAB 25 MEQ PO ONE (11:15)
== END 2022-01-03 12:00 | disposition home or self-care (01) ==
LOC: ER 04:26
DX: R07.89 Other chest pain (principal); E87.6 Hypokalemia; K44.9 Diaphragmatic hernia without obstruction or gangrene; J45.909 Unspecified asthma, uncomplicated; I10 Essential (primary) hypertension
CPT/HCPCS: 36415; 71045; 71275; 80053; 84484; 85025; 93005; 99285; Q9967